=== PATIENT | female | born 1955 | race Caucasian/White ===

== ENCOUNTER → 2017-06-11 | Outpatient (CLI) | payer BC ==
--- NOTE | 2017-06-11 10:35 | RADIOLOGY REPORT (SQ) ---
EXAM DESCRIPTION: BARIUM SWALLOW ESOPHAGUS COMPLETED DATE/TIME: 06/11/2017 8:48 am REASON FOR STUDY: UPPER ABDOMINAL PAIN R13.10 DYSPHAGIA, UNSPECIFIED COMPARISON: None. TECHNIQUE: Under fluoroscopic guidance, patient ingested effervescent granules followed by thick and thin barium. Fluoroscopic spot images and routine radiographic images acquired and stored on PACS. 12 MM BARIUM TABLET GIVEN: Yes. No significant delay in passage. LIMITATIONS: None. FLUOROSCOPY TIME: FLUORO TIME: 1 minutes 18 seconds 8 series of digital images saved to PACS. FINDINGS: NEUROMUSCULAR COORDINATION OF SWALLOW: Normal. No aspiration. ESOPHAGEAL MOTILITY: Normal peristalsis. No esophageal spasm. ESOPHAGEAL MUCOSA: Normal mucosa without masses or ulceration. GASTRO-ESOPHAGEAL JUNCTION: There is a small sliding hiatal hernia. Early Schatzki's ring formation with very mild distal esophageal narrowing from peptic stricture. No gross mucosal ulcerations. 12 mm barium tablet passed through the GE junction without difficulty. There is intermittent unprovoked gastroesophageal reflux to the cervical esophagus NON-GI TRACT STRUCTURES: No significant finding. OTHER: No other significant finding. IMPRESSION: Small sliding hiatal hernia with Schatzki's ring and mild peptic narrowing of the distal esophagus. Unprovoked gastroesophageal reflux to the cervical esophagus COMMENT: Quality ID [id number]: Final reports for procedures using fluoroscopy that document radiation exp osure indices, or exposure time and number of fluorographic images (if radiation exposure indices are not available) TECHNICAL DOCUMENTATION: JOB ID: [id number] [employer]- All Rights Reserved
== END ==
LOC: RAD 07:38
PROVIDERS: ATTEND Family Medicine
DX: R10.10 Upper abdominal pain, unspecified (principal); R13.10 Dysphagia, unspecified; K21.9 Gastro-esophageal reflux disease without esophagitis; K44.9 Diaphragmatic hernia without obstruction or gangrene; K22.2 Esophageal obstruction
CPT/HCPCS: 74220

== ENCOUNTER 2020-07-17 20:11 | Emergency (ER) | payer BC ==
[2020-07-17] MEDS ORDERED: IBUPROFEN 600 MG TABLET PO ONE (20:38)
[2020-07-17] MEDS ORDERED: ACETAMINOPHEN 325 MG TABLET PO ONE (20:38)
[2020-07-17] MEDS ORDERED: HYDROCODONE/ACETAMINOPHEN 5-325 MG TABLET PO ONE (20:45)
--- NOTE | 2020-07-17 20:45 | ER Document Report ---
HPI - HPI Time Seen by Provider: 07/17/20 20:38 Pain Level: 5 Context: Patient is a 64-year-old female presents emergency department with a chief complaint of left arm pain. Patient states that she had her second dose of her shingles vaccine today. She was fine afterwards, but developed pain throughout the day. States that she is unable to move her arm. She has not taken any medications to help with pain. Denies any shortness of breath or difficulty breathing. States the pain is mainly at her left deltoid area where she had the injection. Denies any numbness or tingling. States that her arm feels cold, but she has not been moving it due to the pain. - ROS Systems Reviewed and Negative: Yes All other systems reviewed and negative - CONSTITUTIONAL Constitutional: DENIES: Fever, Chills - RESPIRATORY Respiratory: DENIES: Trouble Breathing, Coughing - GASTROINTESTINAL Gastrointestinal: DENIES: Abdominal Pain, Nausea, Patient vomiting - MUSCULOSKELETAL Musculoskeletal: REPORTS: Extremity pain - DERM Skin Color: Normal Skin Problems: None Past Medical History - General Information source: Patient - Social History Smoking Status: Never Smoker Frequency of alcohol use: None Drug Abuse: None Family History: Reviewed & Not Pertinent Patient has homicidal ideation: No - Past Medical History Cardiac Medical History: Reports: Hx Hypertension Vertical Provider Document - CONSTITUTIONAL Agree With Documented VS: Yes Exam Limitations: No Limitations General Appearance: No Apparent Distress - INFECTION CONTROL TRAVEL OUTSIDE OF THE [place] IN LAST 30 DAYS: No - HEENT HEENT: Atraumatic, Normocephalic, PERRLA - NECK Neck: Normal Inspection - RESPIRATORY Respiratory: No Respiratory Distress - CARDIOVASCULAR Cardiovascular: Regular Rate, Regular Rhythm - MUSCULOSKELETAL/EXTREMETIES Musculoskeletal/Extremeties: Tender - left deltoid area, No Edema. negative: FROM - decreased at left shoulder, Eccymosis - NEURO Level of Consciousness: Awake, Alert, Appropriate Motor/Sensory: No Motor Deficit, No Sensory Deficit - DERM Integumentary: Warm, Dry, No Rash Course - Re-evaluation Re-evalutation: 07/17/20 20:52 She is able to move the left shoulder, but with assistance from her other arm. Educated patient that the second dose of any vaccine could cause pain at the site. We will give her dose of ibuprofen and Tylenol and a dose of Sublette to help her sleep tonight. Ordered Sublette as needed for pain. She will follow-up with her primary care provider. Follow-up precautions were given. Verbal discharge instructions were given to the patient. They verbalized understanding. They are stable for discharge. - Vital Signs Vital signs: Temp Pulse Resp BP Pulse Ox 98.5 F 82 18 148/81 H 100 07/17/20 20:23 07/17/20 20:23 07/17/20 20:23 07/17/20 20:23 07/17/20 20:23 - Laboratory Results Critical Laboratory Results Reviewed: No Critical Results - Radiology Results Critical Radiology Results Reviewed: No Critical Results Discharge - Discharge Clinical Impression: Pain at injection site Qualifiers: Encounter type: initial encounter Qualified Code(s): T80.89XA - Other complications following infusion, transfusion and therapeutic injection, initial encounter Condition: Stable Disposition: HOME, SELF-CARE Additional Instructions: You were seen today in the emergency department for pain in your shingles vaccine site. Please take ibuprofen 600 mg and acetaminophen 650 mg every 6 hours. If you you are in excruciating pain or cannot sleep, take Sublette 1 tablet every 6 hours as needed. Prescriptions: Hydrocodone/Acetaminophen [Sublette 5-325 mg Tablet] 1 tab PO ASDIR PRN #6 tablet PRN Reason: Forms: Return to Work Referrals: COURTNEY MICHAEL MD [Primary Care Provider] - Follow up in 3-5 days
[2020-07-17 20:58] VITALS: BP 145/75
== END 2020-07-17 20:55 | disposition home or self-care (01) ==
LOC: ER 20:11
DX: T80.89XA Other complications following infusion, transfusion and therapeutic injection, initial encounter (principal); M79.602 Pain in left arm; I10 Essential (primary) hypertension
CPT/HCPCS: 99284